=== PATIENT | male | born 1960 | race Caucasian/White ===

== ENCOUNTER → 2018-09-12 15:45 | Outpatient (CLI) | payer OTHER, SELFPAY | PROVIDERS: Family Provider Family Medicine; PCP Family Medicine; Referring Provider Physician Assistant; Visit Provider Physician Assistant | DX: J02.9 Acute pharyngitis, unspecified (principal) | CPT/HCPCS: 87081 ==

== ENCOUNTER → 2019-06-30 07:07 | Outpatient (CLI) | payer OTHER, SELFPAY ==
[2019-06-30 10:36] LABS: Cholesterol 195 mg/dL (200); High Density Lipoprotein 93 mg/dL; PSA,Total - Annual Screen 1.08 ng/mL (0.00-4.00); Triglycerides 55 mg/dL; Very Low Density Lipoprotein 11 mg/dL (5-40)
== END ==
PROVIDERS: Family Provider Family Medicine; PCP Family Medicine; Referring Provider Family Medicine; Visit Provider Family Medicine
DX: Z12.5 Encounter for screening for malignant neoplasm of prostate (principal); E78.00 Pure hypercholesterolemia, unspecified
CPT/HCPCS: 36415; 80061; 84153; G0103

== ENCOUNTER → 2020-11-12 07:04 | Outpatient (CLI) | payer OTHER, SELFPAY ==
[2019-10-19 10:52] VITALS: BMI 24.9
[2020-11-12 10:58] LABS: ALB/GLOB Ratio 1.1 RATIO (0.9-2.4); AST(SGOT) 30 U/L (15-37); Alanine Aminotransfer ALT/SGPT 43 U/L (16-61); Albumin, Serum 3.9 g/dL (3.2-5.0); Alkaline Phosphatase 49 U/L (45-117); Anion Gap 4 (5-15); BUN 20 mg/dL (7-18); BUN/Creat Ratio 16.1 RATIO (10-20); Chloride 105 mmol/L (98-107); Cholesterol 199 mg/dL (200); Creatinine, Serum 1.24 mg/dL (0.70-1.30); EST Glomerular Filtration Rate 63 mL/min (>60); Est Glom Filt Rate - Afr Amer 76 mL/min (>60); Globulin 3.4 g/dL (2.2-4.2); Glucose 80 mg/dL (74-106); High Density Lipoprotein 113 mg/dL; PSA,Total - Annual Screen 0.81 ng/mL (0.00-4.00); Potassium 4.1 mmol/L (3.5-5.1); Protein, Total 7.3 g/dL (6.4-8.2); Sodium Level 138 mmol/L (136-145); Triglycerides 37 mg/dL; Very Low Density Lipoprotein 7 mg/dL (5-40)
== END ==
PROVIDERS: PCP Family Medicine; Referring Provider Family Medicine; Visit Provider Family Medicine
DX: Z13.1 Encounter for screening for diabetes mellitus (principal); Z80.42 Family history of malignant neoplasm of prostate; Z13.220 Encounter for screening for lipoid disorders
CPT/HCPCS: 36415; 80053; 80061; 84153; G0103

== ENCOUNTER → 2021-07-25 07:01 | Outpatient (CLI) | payer OTHER, SELFPAY ==
[2021-07-25 10:33] LABS: ALB/GLOB Ratio 1.1 RATIO (0.9-2.4); AST(SGOT) 24 U/L (15-37); Alanine Aminotransfer ALT/SGPT 32 U/L (16-61); Albumin, Serum 3.9 g/dL (3.2-5.0); Alkaline Phosphatase 49 U/L (45-117); Anion Gap 3 (5-15); BUN 22 mg/dL (7-18); BUN/Creat Ratio 20.4 RATIO (10-20); Calcium,Total 8.8 mg/dL (8.5-10.1); Chloride 106 mmol/L (98-107); Cholesterol 227 mg/dL (200); Creatinine, Serum 1.08 mg/dL (0.70-1.30); EST Glomerular Filtration Rate 73 mL/min (>60); Est Glom Filt Rate - Afr Amer 89 mL/min (>60); Globulin 3.6 g/dL (2.2-4.2); Glucose 98 mg/dL (74-106); High Density Lipoprotein 114 mg/dL; PSA,Total - Annual Screen 1.08 ng/mL (0.00-4.00); Protein, Total 7.5 g/dL (6.4-8.2); Sodium Level 138 mmol/L (136-145); Triglycerides 65 mg/dL; Very Low Density Lipoprotein 13 mg/dL (5-40)
== END ==
PROVIDERS: PCP Family Medicine; Referring Provider Family Medicine; Visit Provider Family Medicine
DX: Z00.00 Encounter for general adult medical examination without abnormal findings (principal); Z13.220 Encounter for screening for lipoid disorders; N52.9 Male erectile dysfunction, unspecified
CPT/HCPCS: 36415; 80053; 80061; 84153; 84403; G0103

== ENCOUNTER → 2021-08-24 16:58 | Outpatient (CLI) | payer OTHER, SELFPAY | PROVIDERS: PCP Family Medicine; Visit Provider Family Medicine | DX: Z20.822 Contact with and (suspected) exposure to COVID-19 (principal) | CPT/HCPCS: 87635; U0005; U0003 ==

== ENCOUNTER 2021-08-25 16:39 | Outpatient (CLI) | payer OTHER, SELFPAY ==
[2021-08-25] MEDS: 0.9% Saline Lock 10 ML Syringe IV (16:53)
[2021-08-25 16:55] VITALS: BP 129/73; PULSE 70; RESP 16; TEMP 36.5; O2SAT 98; BMI 23.9
[2021-08-25 17:40] VITALS: BP 123/66; PULSE 71; RESP 18; TEMP 36.6; O2SAT 98
[2021-08-25 18:40] VITALS: BP 127/77; PULSE 70; RESP 16; TEMP 36.7; O2SAT 97
== END 2021-08-25 18:40 | disposition home or self-care (01) ==
LOC: MS3OUT 16:39 → MS3 16:40
PROVIDERS: PCP Family Medicine; Referring Provider Nurse Practitioner Adult Health; Visit Provider Nurse Practitioner Adult Health
DX: Z23 Encounter for immunization (principal); U07.1 COVID-19
CPT/HCPCS: J7050; M0243; A4216; Q0244

== ENCOUNTER 2021-10-20 09:14 | Emergency (ER) | payer OTHER, SELFPAY ==
[2021-10-20 09:17] VITALS: BP 150/130; PULSE 74; RESP 16; TEMP 36.6; O2SAT 97; BMI 24.3
--- NOTE | 2021-10-20 09:43 | EX.ED.DYSGE1 ---
HPI History of Present Illness Chief Complaint: Back Informant: patient Narrative Narrative: 61-year-old male resents to the emergency room with right-sided back pain. Patient states symptoms been present for the past couple days. It has not prevented him from being able to lift weights. In fact there are times where he states that he has no symptoms. He got up today he took a shower and felt it but it was not bad. His took his temperature and said it was 100.7. He states that there was a strong discussion on both sides about what to do but he came to the emergency room concerned potentially about pneumonia. He did not have a fever here. He denies any shortness of breath or cough. Patient points to the right rhomboid area as the area that is knotted up. He states he has significant concerns regarding lung cancer and he is very anxious about this. He does not however wish a chest x-ray. He is a non-smoker. No unexplained weight loss or dyspnea. He tells me that he had normal blood work at his last PCP appointment. [facility] Medical History Anxiety Asthma Home Medications budesonide 180 mcg/actuation breath activated powder inhaler 2 inh INHALATION BID 90 Days #2 12/07/17 [History Last Taken Unknown] fexofenadine 60 mg tablet 60 mg PO BID 10/19/19 [History Last Taken Unknown] albuterol sulfate 1 - 2 puff INHALATION Q4H PRN PRN 10/20/21 [History Last Taken Unknown] Allergy/AdvReac Type Severity Reaction Status Date / Time grass pollen Allergy Unknown Verified 10/20/21 09:20 pollen extracts Allergy Unknown Verified 10/20/21 09:20 weed pollen Allergy Unknown Verified 10/20/21 09:20 Social History Smoking Status: Never smoker alcohol intake: current alcohol intake frequency: 0-2 drinks per day Alcohol type: beer ROS ROS ED Constitutional Constitutional ED: Denies chills, fever(s) or weight loss Eyes Eyes: Denies change in vision or diplopia ENT ENT ED: Denies ear pain, rhinorrhea or sore throat Cardiovascular Cardiovascular: Denies chest pain, orthopnea, palpitations or racing heartbeat Respiratory/Chest Respiratory/Chest: Denies cough, dyspnea or orthopnea Gastrointestinal Gastrointestinal: Denies abdominal pain, diarrhea, nausea or vomiting Genitourinary Genitourinary ED: Denies dysuria, hematuria or urinary frequency Musculoskeletal Musculoskeletal: Reports back pain; Denies arthralgias or myalgias Integumentary Denies abscess or rash Neurologic Neurologic: Denies headache(s) or weakness Psychiatric Psychiatric: Denies anxiety, depression, suicidal ideation or suicidal thoughts Endocrine Endocrinology: Denies polydipsia, polyphagia or polyuria Allergic/Immunologic Allergic/Immunologic ED: Denies mouth swelling, tongue swelling or urticaria EXAM Physical Exam Const Vital Signs: 10/20/21 09:17 Temperature 97.8 F Temperature Source Oral Pulse Rate 74 Respiratory Rate 16 Blood Pressure 150/130 H Blood Pressure Mean 136 Pulse Ox 97 Oxygen Delivery Method Room Air Positive well nourished and well developed General Appearance ED: well developed HEENT Reports normocephalic, head/scalp atraumatic, TM's clear and moist mucous membranes Negative for trauma Tympanic Membrane ED: Yes TM's clear Eyes PERRL and EOMs intact bilaterally Neck no lymphadenopathy, supple and no JVD Chest Wall inspection of chest normal and palpation of chest normal Resp normal respiratory effort and clear to auscultation bilaterally Cardio regular rate, regular rhythm and no murmurs GI normal to inspection, nondistended, normoactive bowel sounds and non-tender Palpation: soft Back/Spine no CVA tenderness and normal ROM Back/Spine Narrative: Patient has very mild tenderness to the right rhomboid area. There is no rash. Extremity normal to inspection General Extremety ED: Negative for edema General Extremity: Negative for edema Neuro oriented x3 and CN's II-XII intact bilaterally Sensorium / Orientation: alert Motor Exam: strength 5/5 throughout Psych mental status grossly normal Mood & Affect: Negative for depressed or tearful Skin no rashes or lesions noted and no wounds Discharge Plan Triage Chief Complaint: Back ED Provider: Glenn Sanders Dx/Rx/DC Orders Clinical Impression: Muscle spasm of back Instructions: ED Back Spasm, No Trauma Prescriptions: No Action budesonide 180 mcg/actuation aerosol powdr breath activated 2 inh INHALATION BID 90 Days Qty: 2 RF: 0 fexofenadine [Sherly Allergy] 60 mg tablet 60 mg PO BID RF: 0 albuterol sulfate 90 mcg/actuation HFA aerosol inhaler 1 - 2 puff INHALATION Q4H PRN PRN (Reason: sob) RF: 0 Primary Care Provider: Care Physician,No Primary Referrals: Isaiah Davila MD [STAFF PHYSICIAN] - 1 Week if not improving Disposition Disposition: Home, Self Care
[2021-10-20 09:48] VITALS: PULSE 76; RESP 17; O2SAT 97
== END 2021-10-20 09:49 | disposition home or self-care (01) ==
LOC: ED 09:43
PROVIDERS: Emergency Provider Emergency Medicine
DX: M62.830 Muscle spasm of back (principal); M54.9 Dorsalgia, unspecified; J45.909 Unspecified asthma, uncomplicated; Z79.899 Other long term (current) drug therapy
CPT/HCPCS: 99282

== ENCOUNTER → 2022-05-23 | Outpatient (CLI) | payer OTHER, SELFPAY ==
[2022-05-23 10:37] LABS: ALB/GLOB Ratio 1.1 RATIO (0.9-2.4); AST(SGOT) 26 U/L (15-37); Alanine Aminotransfer ALT/SGPT 35 U/L (16-61); Albumin, Serum 3.9 g/dL (3.2-5.0); Alkaline Phosphatase 54 U/L (45-117); Anion Gap 4 (5-15); BUN 16 mg/dL (7-18); BUN/Creat Ratio 14.3 RATIO (10-20); Calcium,Total 9.1 mg/dL (8.5-10.1); Chloride 104 mmol/L (98-107); Cholesterol 222 mg/dL (200); Creatinine, Serum 1.12 mg/dL (0.70-1.30); EST Glomerular Filtration Rate 70 mL/min (>60); Est Glom Filt Rate - Afr Amer 85 mL/min (>60); Globulin 3.5 g/dL (2.2-4.2); Glucose 99 mg/dL (74-106); High Density Lipoprotein 114 mg/dL; Potassium 4.2 mmol/L (3.5-5.1); Protein, Total 7.4 g/dL (6.4-8.2); Sodium Level 140 mmol/L (136-145); Triglycerides 45 mg/dL; Very Low Density Lipoprotein 9 mg/dL (5-40)
== END | disposition home or self-care (01) ==
LOC: MTLAB 07:05
PROVIDERS: PCP Family Medicine; Referring Provider Family Medicine; Visit Provider Family Medicine
DX: Z00.00 Encounter for general adult medical examination without abnormal findings (principal)
CPT/HCPCS: 36415; 80053; 80061; 84403

== ENCOUNTER → 2023-04-19 | Outpatient (CLI) | payer OTHER, SELFPAY ==
[2023-04-19 10:03] LABS: Absolute Lymphocyte Count 1.34 X10^3/uL (0.83-4.51); Absolute Neutrophil Count 2.9 X10^3/uL (2.0-7.7); Basophil# 0.08 X10^3/uL; Basophil% 1.5 % (0-1); Eosinophil# 0.54 X10^3/uL; Eosinophils% 9.9 % (0-5); Hemoglobin 14.2 g/dL (13.0-16.5); Lymphocyte # 1.34 X10^3/ul (0.83-4.51); Lymphocyte % 24.6 % (19-41); Mean Corpuscular Hgb 32.6 pg (27.0-32.0); Mean Corpuscular Volume 98.9 fL (80-94); Mean Platelet Vol. 9.4 fl (6.2-12.0); Monocyte# 0.56 X10^3/uL; Monocyte% 10.3 % (0-10); NRBC Flagged by Analyzer 0 % (0-5); Neutrophil % 53.3 % (47-70); Platelet Count 309 K/mm3 (150-450); RBC Distribution Width CV 12.5 % (11.6-14.6); RBC Distribution Width SD 45.6 fl (35.1-43.9); Red Blood Count 4.35 M/mm3 (4.6-6.2); White Blood Count 5.4 K/mm3 (4.4-11.0)
[2023-04-19 10:26] LABS: Anion Gap 5 (5-15); BUN 26 mg/dL (7-18); BUN/Creat Ratio 23.6 RATIO (10-20); Calcium,Total 9.2 mg/dL (8.5-10.1); Chloride 107 mmol/L (98-107); EST Glomerular Filtration Rate 72 mL/min (>60); Est Glom Filt Rate - Afr Amer 87 mL/min (>60); Glucose 89 mg/dL (74-106); Potassium 4.2 mmol/L (3.5-5.1); Sodium Level 142 mmol/L (136-145)
== END | disposition home or self-care (01) ==
LOC: MTLAB 08:56
PROVIDERS: PCP Family Medicine; Referring Provider Family Medicine; Visit Provider Family Medicine
DX: R42 Dizziness and giddiness (principal)
CPT/HCPCS: 36415; 80048; 85025

== ENCOUNTER → 2023-08-17 | Outpatient (CLI) | payer OTHER, SELFPAY ==
--- NOTE | 2023-08-17 09:15 | RAD_ITS ---
INDICATION: PAIN EXAMINATION/TECHNIQUE: X-RAY - LEFT XR Knee Complete 4 VIEWS COMPARISON: No relevant prior comparison study available FINDINGS: SOFT TISSUES: No soft tissue swelling or gas. No radiopaque foreign body. BONES/JOINTS: No acute fracture or subluxation.. Normal alignment. There are faint calcifications projecting over the medial and lateral compartments consistent with chondrocalcinosis. Preservation of the joint space.. No sclerotic or destructive changes observed. RAD/Knee 4 or More Views IMPRESSION: Chondrocalcinosis. Electronically Signed: Dorie Blue MD at 16:14 EDT ,
== END | disposition home or self-care (01) ==
LOC: MTRAD 09:12
PROVIDERS: PCP Family Medicine; Referring Provider Family Medicine; Visit Provider Family Medicine
DX: M25.562 Pain in left knee (principal)
CPT/HCPCS: 73564

== ENCOUNTER → 2023-11-23 | Outpatient (CLI) | payer MEDICARE, SELFPAY ==
[2023-11-23 12:52] LABS: Anion Gap 3 (5-15); BUN 22 mg/dL (7-18); BUN/Creat Ratio 20.4 RATIO (10-20); Calcium,Total 9.5 mg/dL (8.5-10.1); Chloride 108 mmol/L (98-107); Cholesterol 223 mg/dL (200); Creatinine, Serum 1.08 mg/dL (0.70-1.30); EST Glomerular Filtration Rate 73 mL/min (>60); Est Glom Filt Rate - Afr Amer 88 mL/min (>60); Glucose 104 mg/dL (74-106); High Density Lipoprotein 96 mg/dL; PSA,Total - Annual Screen 1.35 ng/mL (0.00-4.00); Potassium 4.4 mmol/L (3.5-5.1); Sodium Level 141 mmol/L (136-145); Triglycerides 53 mg/dL; Very Low Density Lipoprotein 11 mg/dL (5-40)
== END | disposition home or self-care (01) ==
LOC: MTLAB 09:28
PROVIDERS: PCP Family Medicine; Referring Provider Family Medicine; Visit Provider Family Medicine
DX: Z00.00 Encounter for general adult medical examination without abnormal findings (principal); E78.00 Pure hypercholesterolemia, unspecified; Z12.5 Encounter for screening for malignant neoplasm of prostate
CPT/HCPCS: 36415; 80048; 80061; 84153; G0103

== ENCOUNTER → 2024-10-02 | Outpatient (CLI) | payer MEDICARE, SELFPAY ==
[2024-10-02 10:39] LABS: Cholesterol 241 mg/dL (200); High Density Lipoprotein 140 mg/dL; Triglycerides 53 mg/dL; Very Low Density Lipoprotein 11 mg/dL (5-40)
== END | disposition home or self-care (01) ==
PROVIDERS: PCP Family Medicine; Referring Provider Family Medicine; Visit Provider Family Medicine
DX: E78.00 Pure hypercholesterolemia, unspecified (principal)
CPT/HCPCS: 36415; 80061

== ENCOUNTER → 2024-12-09 | Outpatient (CLI) | payer MEDICARE, SELFPAY ==
[2024-12-09 10:30] LABS: Anion Gap 4 (5-15); BUN 16 mg/dL (7-18); BUN/Creat Ratio 16.5 RATIO (10-20); Calcium,Total 9.1 mg/dL (8.5-10.1); Chloride 106 mmol/L (98-107); Cholesterol 229 mg/dL (200); Creatinine, Serum 0.97 mg/dL (0.70-1.30); EST Glomerular Filtration Rate 82 mL/min (>60); Est Glom Filt Rate - Afr Amer 99 mL/min (>60); Glucose 97 mg/dL (74-106); High Density Lipoprotein 134 mg/dL; PSA,Total - Annual Screen 1.29 ng/mL (0.00-4.00); Potassium 4.4 mmol/L (3.5-5.1); Sodium Level 140 mmol/L (136-145); Triglycerides 46 mg/dL; Very Low Density Lipoprotein 9 mg/dL (5-40)
== END | disposition home or self-care (01) ==
LOC: MTLAB 07:04
PROVIDERS: PCP Family Medicine; Referring Provider Family Medicine; Visit Provider Family Medicine
DX: Z00.00 Encounter for general adult medical examination without abnormal findings (principal); E78.00 Pure hypercholesterolemia, unspecified; Z12.5 Encounter for screening for malignant neoplasm of prostate
CPT/HCPCS: 36415; 80048; 80061; 84153; G0103

== ENCOUNTER → 2024-12-22 | Outpatient (CLI) | payer MEDICARE, SELFPAY ==
--- NOTE | 2024-12-22 16:56 | RAD_ITS ---
STUDY: X-RAY - LUMBAR SPINE REASON FOR EXAM: Male, 64 years old. Sciatica. TECHNIQUE: 4 view(s) of the lumbar spine were obtained. COMPARISON: None FINDINGS: Osteopenia. Normal lumbar lordosis. There is no substantial scoliosis. There is a normal alignment of the vertebrae. Diffuse moderate lower thoracic and lumbosacral facet sclerosis. Intervertebral disc space narrowing at L3-4, L4-5 and L5-S1. Osteophytes most marked at L4-5 and L5-S1. The soft tissue structures are normal. RAD/L/S Spine Min 4 Views IMPRESSION: Osteopenia with lower lumbosacral spine spondylosis as described. Electronically Signed: Harpal Mcrae MD at 10:18 EST ,
== END | disposition home or self-care (01) ==
LOC: MTRAD 16:54
PROVIDERS: PCP Family Medicine; Referring Provider Family Medicine; Visit Provider Family Medicine
DX: M54.30 Sciatica, unspecified side (principal)
CPT/HCPCS: 72110

== ENCOUNTER 2025-02-18 16:30 | Outpatient (RCR) | payer MEDICARE, SELFPAY ==
--- NOTE | 2024-12-22 19:38 | HP.PTEVAL ---
Patient's Visit Information Visit Information Visit Information: LLOYD MURRELL is a 64 year old M referred to Physical Therapy by Dr. Isaiah Davila MD with a diagnosis of MUSCLE SPASMS OF BACK. Date of Evaluation: 12/22/24 Physical Therapist: Moi Castillo, PT, Cert MDT, OCS Visit Plan Frequency: 2x /Week Duration: 4 Weeks Plan: PT INTERVENTIONS ROSHAN EX'S ,PROGRESS TO DLS ,POSTURAL EX'S ,LE FLEXABILITY AND POSTURE TRAINING Subjective Subjective: This 64 y/o male presents to physical therapy with lumbar pain right side with radicular symptoms right leg. Patient developed lumbar pain right radicular symptoms ~ 4 weeks ago with a long drive to [place]. Patient has h/o sciatica pain 20 years ago. Patient seen did x-rays DDD . Patient prescribed meloxicam, prednisone ,muscle relaxer. Patient right LS /glut. Aggravating lifting ,sitting,bending. Alleviating factors walking. In AM worse. Coughing/sneezing-. Denies paresthesia/tingling - Patient works out daily but has not return due to pain. Patient sleeping good. Patient seen chiropractor. Patient condition affects QOL and function . Patient goals to decrease pain and return working. SOCIAL: VOCATION: retired teacher Pain Left Back: Pain Intensity (Out of 10): 3 Pain Intensity Range: 10 Objective Objective: POSTURE: mild forward posture GAIT:reciprocal pattern NEURO: occasional paresthesia/tingling ,reflexes L3-4,L4-5,L5-S1 1/3 SYMMETRIES: align PALAPTION: unremarkable FLEXABILITY: hamstrings min/mod loss pain right side MMT: quads/hams ,hip flexion, 4/5 ,ankle 4/5 LUMBAR ROM: flexion mod loss pain ,extension mod loss ,side glides min loss Special Tests L/S Slump test left side: Negative L/S Slump test right side: Positive L/S Left Straight Leg Raise: Negative L/S Right Straight Leg Raise: Positive Lumbar Standing: Flexion - Mechanical Response: No effect Lumbar Standing: Flexion - Symptoms After Testing: Worse Lumbar Standing: Extension - Symptoms During Testing: Decreases Lumbar Standing: Extension - Symptoms After Testing: Better Lumbar Standing: Right Side Glides - Mechanical Response: No effect Lumbar Standing: Right Side [place] - Symptoms During Testing: No effect Lumbar Standing: Right Side [place] - Symptoms After Testing: No effect Lumbar Standing: Left Side [place] - Mechanical Response: No effect Lumbar Standing: Left Side [place] - Symptoms During Testing: No effect Lumbar Standing: Left Side [place] - Symptoms After Testing: No effect Lumbar Lying: Flexion - Mechanical Response: No effect Lumbar Lying: Flexion - Symptoms During Testing: Increases Lumbar Lying: Extension - Mechanical Response: No effect Lumbar Lying: Extension - Symptoms During Testing: Increases Lumbar Lying: Extension - Symptoms After Testing: Better Balance/Special Test Scores Oswestry Low Back Score: 24 Goals Goal 1:: Patient to be I with HEP for back Goal Time Frame: 4-6 Weeks Goal 2:: Patient to demonstrate 75% improvement with less pain and improve function Goal Time Frame: 4-6 Weeks Goal 3:: Patient to improve lumbar ROM for function of recovery for ADLS and putting on shoes Goal Time Frame: 4-6 Weeks Goal 4:: Patient to improve back oswestry score by 5 points to improve function and housework Goal Time Frame: 4-6 Weeks Rehabilitation Potential Physical Therapy Diagnosis: This patient has possible disc with symptoms worse with flexion better with extension worse with positioning motion testing thus benefit from skilled PT Rehabilitation Potential: Good Anticipated Interventions Patient/Client Instruction: Educate patient on: Condition and Plan of Care For the Purpose of:: To decrease pain, To increase ROM, To improve muscle performance and motor function, To improve ability to perform ADL's, To increase tolerance to activity/condition/position, To improve ability of physical actions for home/community/work/leisure, To improve health of tissue, To reduce risk of recurrence and To prevent re-injury Therapeutic Exercise to Include: Strength training, Body mechanics, Postural training, Flexibilty training, Dynamic Lumbar Stabilization and Roshan Exercises For the Purpose of:: To decrease pain, To increase ROM, To improve muscle performance and motor function, To improve ability to perform ADL's, To increase tolerance to activity/condition/position, To improve ability of physical actions for home/community/work/leisure, To improve health of tissue, To decrease soft tissue restriction, To increase flexibility/ROM, To reduce risk of recurrence and To prevent re-injury TENS: Yes IF ES: Yes Cryotherapy (ice pack, ice massage): Yes Thermo therapy (hot pack): Yes Ultrasound (thermal/non thermal): Yes For the Purpose of:: To decrease pain and To decrease swelling/inflammation Text: Thank you for the opportunity to evaluate your patient. For Medicare and Medicare HMO plans, please review the plan of care and approve it. It will need to be FAXED BACK to us at [phone] for Medicare purposes. For Medicare only, by signing this I certify the plan of care. Please let me know if there are questions or concerns regarding this plan of care. Physician Signature: Date:
--- NOTE | 2025-01-19 17:04 | HP.PTREVAL ---
Re-Evaluation Intro: Dr. Isaiah Davila MD, It has been my pleasure to treat LLOYD MURRELL over the last 8 visits for MUSCLE SPASMS OF BACK. Please see the progress note below for an update on the physical therapy plan of care! Subjective Subjective: Pain is intermittent great and bad Objective Objective/Function: Patient will cont to benefit from skilled PT to decrease pain lumbar with goals appropriate Educated most important patient on generalized movement such as work on mobility and extension when pain is worse POSTURE: mild forward posture GAIT:reciprocal pattern NEURO: occasional paresthesia/tingling ,reflexes L3-4,L4-5,L5-S1 1/3 SYMMETRIES: align PALAPTION: unremarkable FLEXABILITY: hamstrings min loss pain right side MMT: quads/hams ,hip flexion, 4/5 ,ankle 4/5 LUMBAR ROM: flexion mod loss pain ,extension min loss ,side glides min loss Plan Plan Plan: Add gym based program as [place] PT INTERVENTIONS ROSHAN EX'S ,PROGRESS TO DLS ,POSTURAL EX'S ,LE FLEXABILITY AND POSTURE TRAINING Balance/Gait/Functional tests Balance/Special Test Scores Oswestry Low Back Score: 20 Goals Goals Goal 1:: Patient to be I with HEP for back Goal Time Frame: 4-6 Weeks Goal Progress: Progressing Goal 2:: Patient to demonstrate 75% improvement with less pain and improve function Goal Time Frame: 4-6 Weeks Goal Progress: Progressing Goal 3:: Patient to improve lumbar ROM for function of recovery for ADLS and putting on shoes Goal Time Frame: 4-6 Weeks Goal Progress: Progressing Goal 4:: Patient to improve back oswestry score by 5 points to improve function and housework Goal Time Frame: 4-6 Weeks Goal Progress: Progressing Goal Progress: Progressing Anticipated Interventions Anticipated Interventions Patient/Client Instruction: Educate patient on: Condition and Plan of Care For the Purpose of:: To decrease pain, To increase ROM, To improve muscle performance and motor function, To improve ability to perform ADL's, To increase tolerance to activity/condition/position, To improve ability of physical actions for home/community/work/leisure, To improve health of tissue, To reduce risk of recurrence and To prevent re-injury Therapeutic Exercise to Include: Strength training, Body mechanics, Postural training, Flexibilty training, Dynamic Lumbar Stabilization and Roshan Exercises For the Purpose of:: To decrease pain, To increase ROM, To improve muscle performance and motor function, To improve ability to perform ADL's, To increase tolerance to activity/condition/position, To improve ability of physical actions for home/community/work/leisure, To improve health of tissue, To decrease soft tissue restriction, To increase flexibility/ROM, To reduce risk of recurrence and To prevent re-injury TENS: Yes IF ES: Yes Cryotherapy (ice pack, ice massage): Yes Thermo therapy (hot pack): Yes Ultrasound (thermal/non thermal): Yes For the Purpose of:: To decrease pain and To decrease swelling/inflammation Re-Evaluation Ending Re-evaluation ending: Please do not hesitate to contact me at [phone] by phone or if you have questions or concerns regarding this new plan of care! Sincerely, Moi Castillo, PT, Cert MDT, OCS
--- NOTE | 2025-04-01 15:40 | HP.PTDCSUM ---
Discharge Summary D/C summary: It has been my pleasure to treat LLOYD MURRELL referred by Dr. Isaiah Davila MD, with the diagnosis of MUSCLE SPASMS OF BACK for a total of 14 visit(s). Discharge Date: Please see the following information for a summary of their discharge status. Subjective Subjective: Seen DR Ya plan for MRI March 21 Back pain is better Medication : oxycodone ,prednisone prescribed 2 days ago Pain Left Back: Pain Intensity (Out of 10): 2 Overall Improvement % Improvement: 75 Objective Objective/Function: Objective/Function: Patient will cont to benefit from skilled PT to decrease pain lumbar with goals appropriate Educated most important patient on generalized movement such as work on mobility and extension when pain is worse POSTURE: mild forward posture GAIT:reciprocal pattern NEURO: occasional paresthesia/tingling ,reflexes L3-4,L4-5,L5-S1 1/3 SYMMETRIES: align PALAPTION: unremarkable FLEXABILITY: hamstrings min loss pain right side MMT: quads/hams ,hip flexion, 4/5 ,ankle 4/5 LUMBAR ROM: flexion mod loss pain ,extension min loss ,side glides min loss Goals Goal 1:: Patient to be I with HEP for back Goal Progress: Progressing Goal 2:: Patient to demonstrate 75% improvement with less pain and improve function Goal Progress: Progressing Goal 3:: Patient to improve lumbar ROM for function of recovery for ADLS and putting on shoes Goal Progress: Progressing Goal 4:: Patient to improve back oswestry score by 5 points to improve function and housework Goal Progress: Progressing Goal Progress: Progressing Plan Plan: D/C AND PLAN FOR MRI D/C Information d/c sentence: If there are questions or concerns regarding this patient's physical therapy, please feel free to call me at [phone]. Thank you for the referral of this patient. Sincerely, Moi Castillo, PT, Cert MDT, OCS Balance/Gait/Functional tests Balance/Special Test Scores Oswestry Low Back Score: 9 Improvement % Improvement: 75
== END 2025-02-18 19:00 | disposition home or self-care (01) ==
LOC: PT 16:30
PROVIDERS: PCP Family Medicine; Referring Provider Family Medicine; Visit Provider Family Medicine
DX: M62.830 Muscle spasm of back (principal)
CPT/HCPCS: 97110; 97162; 97530

== ENCOUNTER → 2025-08-12 | Outpatient (CLI) | payer MEDICARE, SELFPAY ==
--- NOTE | 2025-08-12 16:41 | RAD_ITS ---
EXAM: XR Right Knee Complete, 4 or More Views CLINICAL INDICATION: KNEE PAIN TECHNIQUE: Four or more views of the right knee. COMPARISON: No relevant prior studies available. FINDINGS: BONES/JOINTS: Mild tricompartmental degenerative changes of the knee joint. No acute fracture. No dislocation. SOFT TISSUES: Soft tissue swelling. Probable calcified tendinopathy. RAD/Knee 4 or More Views IMPRESSION: 1. Soft tissue swelling. 2. Degenerative changes as above. Reading Location: [id number]
== END | disposition home or self-care (01) ==
LOC: MTRAD 16:39
PROVIDERS: PCP Family Medicine; Referring Provider Family Medicine; Visit Provider Family Medicine
DX: M25.561 Pain in right knee (principal)
CPT/HCPCS: 73564

== ENCOUNTER → 2025-10-14 | Outpatient (CLI) | payer MEDICARE, SELFPAY ==
[2025-10-14 10:35] LABS: AST(SGOT) 27 U/L (<=37); Alanine Aminotransfer ALT/SGPT 28 U/L (<=46); Albumin, Serum 4.6 g/dL (3.4-4.8); Alkaline Phosphatase 42 U/L (40-129); Anion Gap 8 (5-15); BUN 16 mg/dL (4-19); BUN/Creat Ratio 15.4 RATIO (10-20); Calcium,Total 9.7 mg/dL (7.6-11.0); Carbon Dioxide 28.4 mmol/L (21.0-32.0); Chloride 102 mmol/L (98-108); Cholesterol 232 mg/dL (<=200); Globulin 2.6 g/dL (2.2-4.2); Glucose 108 mg/dL (70-99); Low Density Lipoprotein Calc. 112 mg/dL; Potassium 4.3 mmol/L (3.3-5.1); Triglycerides 55 mg/dL; Very Low Density Lipoprotein 11 mg/dL (5-40); cholesterol:hdl ratio screen 2.09
== END | disposition home or self-care (01) ==
LOC: MTLAB 07:15
PROVIDERS: PCP Family Medicine; Referring Provider Family Medicine; Visit Provider Family Medicine
DX: E78.00 Pure hypercholesterolemia, unspecified (principal)
CPT/HCPCS: 36415; 80053; 80061